=== PATIENT | female | born 1960 | race Two or more races ===

== ENCOUNTER 2019-04-05 00:41 | Emergency (ER) | payer MEDICAID, OTHER ==
[~2019-04-05] VITALS: Ht 152.4 cm; Wt 69.0 kg
[2019-04-05] MEDS ORDERED: KETOROLAC 30MG/ML VIAL IV STA (01:22)
[2019-04-05] MEDS ORDERED: SODIUM CHLORIDE 0.9% 1,000 ML IV ONE (01:22)
[2019-04-05] MEDS ORDERED: ONDANSETRON HCL 4MG/2ML INJ IV STA (01:22)
[2019-04-05] MEDS ORDERED: DIPHENHYDRAMINE 25MG CAPSULE PO ONE (01:30)
[2019-04-05 01:44] LABS: BASOPHILS % 0.5 % (0.0-2.0); EOSINOPHILS % 1.1 % (0.0-5.0); HEMATOCRIT. 43.2 % (36.0-48.0); HEMOGLOBIN. 14.4 g/dL (12.0-16.0); LYMPHOCYTES % 12.2 % (20.0-50.0); MEAN CORPUSCULAR HEMOGLOBIN 28.5 pg (28.0-32.0); MEAN CORPUSCULAR VOLUME 85.8 fL (81.0-99.0); MEAN PLATELET VOLUME 10.8 fl (7.4-10.4); NEUTROPHILS % 82.2 % (40.0-76.0); PLATELET 279 x1000/uL (130-400); RED BLOOD CELL COUNT 5.03 mill/uL (4.2-5.4); RED CELL DISTRIBUTION WIDTH 14.2 % (11.6-14.6)
[2019-04-05 01:51] LABS: CHLORIDE 108 mEq/L (98-107)
[2019-04-05 01:52] LABS: PROTHROMBIN TIME 10.3 sec (9.6-11.0)
[2019-04-05 03:24] LABS: CLARITY URINE CLEAR (CLEAR); COLOR URINE YELLOW (YELLOW); KETONES URINE NEGATIVE (NEGATIVE); LEUKOCYTE ESTERASE URINE NEGATIVE (NEGATIVE); NITRITE URINE NEGATIVE (NEGATIVE); OCCULT BLOOD URINE 1+ (NEGATIVE); PH URINE 5.5 (4.5-8.0); PROTEIN URINE TRACE (NEGATIVE); SPECIFIC GRAVITY URINE 1.011 (1.005-1.030); UROBILINOGEN URINE 0.2 E.U./dL (0.2-1.0)
[2019-04-05 06:35] VITALS: BP 128/77
== END 2019-04-05 06:39 | disposition home or self-care (01) ==
LOC: ER 01:32
DX: R10.9 Unspecified abdominal pain (principal); M25.551 Pain in right hip; R19.7 Diarrhea, unspecified; R11.2 Nausea with vomiting, unspecified; E78.00 Pure hypercholesterolemia, unspecified
CPT/HCPCS: 36415; 73502; 80053; 81003; 83690; 84484; 85025; 85610; 93005; 96361; 96374; 96375; 99284; J1885; J2405; J7030; Q0163

== ENCOUNTER → 2024-04-27 | Emergency (ER) | payer MEDICAID ==
[~2024-04-27] VITALS: Ht 152.4 cm; Wt 68.0 kg
[~2024-04-27] MED LIST: CETI10CA2 MT; EPIN0.3P3 IM; EPINEPHRINE 1:1000 1 MG/ML AMP IM ONE; P20 MT
[2024-04-27 11:41] VITALS: TEMP 98.4; O2SAT 100
[2024-04-27] MEDS: METHYLPREDNISOLONE SOD SUCC 125MG/2ML (ACT-O-VIAL) IV ONE (13:29)
[2024-04-27] MEDS: DIPHENHYDRAMINE 50MG/ML VIAL IV ONE (13:29)
[2024-04-27] MEDS: EPINEPHRINE 1:1000 1 MG/ML AMP IM ONE (13:29)
[2024-04-27] MEDS: FAMOTIDINE 20MG/2ML VIAL IV ONE (13:29)
[2024-04-27 15:36] LABS: BASOPHILS % 0.4 % (0.0-2.0); EOSINOPHILS % 1.9 % (0.0-5.0); HEMATOCRIT. 41.1 % (36.0-48.0); HEMOGLOBIN. 13.6 g/dL (12.0-16.0); LYMPHOCYTES % 14.5 % (20.0-50.0); MEAN CORPUSCULAR HEMOGLOBIN 29.4 pg (28.0-32.0); MEAN CORPUSCULAR VOLUME 89.2 fL (81.0-99.0); MEAN PLATELET VOLUME 9.9 fl (7.4-10.4); MONOCYTES % 2.4 % (2.0-8.0); NEUTROPHILS % 80.8 % (40.0-76.0); PLATELET 253 x1000/uL (130-400); RED BLOOD CELL COUNT 4.61 mill/uL (4.2-5.4); RED CELL DISTRIBUTION WIDTH 13.6 % (11.6-14.6); WHITE BLOOD COUNT 8.9 x1000/uL (4.5-11.0)
[2024-04-27 15:48] LABS: CHLORIDE 106 mEq/L (98-107); POTASSIUM 4.4 mEq/L (3.5-5.1); SODIUM 139 mEq/L (136-145)
[2024-04-27 15:49] LABS: CALCIUM 9.9 mg/dL (8.7-10.4); CARBON DIOXIDE 26 mEq/L (21-32)
[2024-04-27 15:54] LABS: CREATININE 0.9 mg/dL (0.6-1.0); GLUCOSE 120 mg/dL (70-105); UREA NITROGEN BLOOD 11 mg/dL (9-23)
[2024-04-27 15:56] LABS: ALANINE AMINOTRANSFERASE 27 IU/L (10-49); ALBUMIN 4.8 g/dL (3.2-4.8); ASPARTATE AMINOTRANSFERASE 31 IU/L (<34); BILIRUBIN TOTAL 0.4 mg/dL (0.1-1.0); PROTEIN TOTAL 8.2 g/dL (6.0-8.3)
[2024-04-27 16:36] VITALS: BP 165/86; PULSE 93; RESP 16; O2SAT 97
== END ==
LOC: ER 11:37 → EDBEDREQ 15:26
DX: T78.2XXA Anaphylactic shock, unspecified, initial encounter (principal); E11.9 Type 2 diabetes mellitus without complications; X58.XXXA Exposure to other specified factors, initial encounter
CPT/HCPCS: 80053; 83690; 85025; 36415; 71045; 96374; 96375; 99284; J1200; J3490 ×2; J2919; Z7610 ×2